=== PATIENT | male | born 1980 | race Caucasian/White ===

== ENCOUNTER → 2016-11-13 | Day surgery (SDC) | payer MEDICARE, MEDICAID ==
[~2016-11-13] VITALS: Ht 185.4 cm; Wt 136.1 kg
[~2016-11-13] MED LIST: ARIPIPRAZOLE10 MG PO; ARIPIPRAZOLE15 MG PO; ASPIRIN EC81 MG PO; CLARITIN10 MG PO; COREG 3.1253.125 MG PO; CPAP INH; DIPROLENE AF 00.05 % TOP; EFFEXOR XR PO; GLUCOPHAGE1000 MG PO; JANUVIA50 MG PO; MELATIN3 MG PO; MULTAQ400 MG PO; MYCOSTATIN CREA30 GM TOP; PRILOSEC20 MG PO; SINGULAIR10 MG PO; TRAZODONE HCL100 MG PO; VENLAFAXINE HC225 MG PO; XARELTO20 MG PO; ZOCOR40 MG PO; [UNRECOGNIZED DRUG - OTHER] TOP
--- NOTE | ~2016-11-13 | OR ---
PATIENT'S NAME: JOSE JUNIOR [facility] AGE: 36 Y [address] ROOM: [place] [address] LOCATION: [facility] [place] ADMIT DATE: 11/13/2016 OR/Procedure Report DISCHARGE DATE: FAMILY PHYSICIAN: Yousuf Michel MD ATTENDING PHYSICIAN: Jayshree Osorio SURGEON: Jayshree Osorio DDS FISCAL SERVICES MANAGER: I was assisted by Jenna Lewis. DATE OF PROCEDURE: 11/13/2016 PREOPERATIVE DIAGNOSIS: Repair of carious lesions with or without extraction. POSTOPERATIVE DIAGNOSIS: Carious lesions repaired without extraction. NAME OF OPERATION: Repair of carious lesions with or without extractions. The patient arrived at outpatient in [facility] and n.p.o. The patient is mentally challenged and we cannot achieve profound anesthesia in the office, so outpatient is necessary. There was a presurgical consultation with the patient and his brother and all questions were answered. The patient was taken to the OR. In the supine position, the patient was prepped and draped in the usual manner. The patient was nasally intubated and administered general anesthesia. An IV was placed prior to the intubation. A throat pack was then placed to occlude the pharynx. An oral exam was completed. A rubber dam and mouth prop were used whenever possible. The oral rehabilitation was as follows. #15, mesial occlusal amalgam. The amalgam was Wolf contour amalgam with Copalite cavity varnish. The mouth was then rinsed and the throat pack was removed. 3M [place] Vanish 5% sodium fluoride varnish was applied to all dentition. Blood loss was minimal. The patient tolerated the procedure well and was transferred to recovery in good and stable condition. 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 JAYSHREE OSORIO DDS TLP/modl /[id number] d: 11/13/16 2145 t: 11/23/16 0844, OPERATIVE SUMMARY
== END | disposition disaster alternative care site (69) ==
LOC: GPOC 11-09 09:00 → GSDC 07:00
PROC: 0CR Mouth and Throat, Replacement (ICD-10-PCS; principal; 2016-11-13)
PROC: 0CR Mouth and Throat, Replacement (ICD-10-PCS; 2016-11-13)
DX: K02.9 Dental caries, unspecified (principal); I48.91 Unspecified atrial fibrillation; I10 Essential (primary) hypertension; E11.9 Type 2 diabetes mellitus without complications; K21.9 Gastro-esophageal reflux disease without esophagitis; E78.5 Hyperlipidemia, unspecified; F32.9 Major depressive disorder, single episode, unspecified; G47.30 Sleep apnea, unspecified; F17.210 Nicotine dependence, cigarettes, uncomplicated; Z88.0 Allergy status to penicillin; Z88.8 Allergy status to other drugs, medicaments and biological substances; Z79.84 Long term (current) use of oral hypoglycemic drugs; Z79.899 Other long term (current) drug therapy; Z98.890 Other specified postprocedural states
CPT/HCPCS: J2001; J7030

== ENCOUNTER → 2017-01-08 | Outpatient (CLI) | payer MEDICARE, MEDICAID | END | disposition disaster alternative care site (69) | LOC: GAMB 10:05 | DX: T78.1XXA Other adverse food reactions, not elsewhere classified, initial encounter (principal); T78.49XA Other allergy, initial encounter; I48.91 Unspecified atrial fibrillation; E11.9 Type 2 diabetes mellitus without complications; L50.9 Urticaria, unspecified; L53.9 Erythematous condition, unspecified; R06.02 Shortness of breath; R11.0 Nausea | CPT/HCPCS: A0422; A0425; A0427; J1200; J2405; J2930; J7030 ==

== ENCOUNTER → 2017-01-11 | Outpatient (CLI) | payer MEDICARE, MEDICAID | END | disposition disaster alternative care site (69) | LOC: GAMB 21:25 | DX: F41.9 Anxiety disorder, unspecified (principal); I10 Essential (primary) hypertension; I48.2 Chronic atrial fibrillation; E78.5 Hyperlipidemia, unspecified; E11.9 Type 2 diabetes mellitus without complications; Z79.899 Other long term (current) drug therapy; R07.9 Chest pain, unspecified; Z88.0 Allergy status to penicillin; Z88.8 Allergy status to other drugs, medicaments and biological substances | CPT/HCPCS: A0425; A0427 ==

== ENCOUNTER → 2017-04-05 | Outpatient (CLI) | payer MEDICARE, MEDICAID | END | disposition disaster alternative care site (69) | LOC: GAMB 17:18 | DX: R53.81 Other malaise (principal); I10 Essential (primary) hypertension; I48.2 Chronic atrial fibrillation; E11.9 Type 2 diabetes mellitus without complications; F25.9 Schizoaffective disorder, unspecified; Z79.02 Long term (current) use of antithrombotics/antiplatelets; Z79.899 Other long term (current) drug therapy; Z88.0 Allergy status to penicillin; Z88.8 Allergy status to other drugs, medicaments and biological substances | CPT/HCPCS: A0425; A0429 ==

== ENCOUNTER 2017-04-29 03:48 | Emergency (ER) | payer MEDICARE, MEDICAID ==
--- NOTE | ~2017-04-29 | ER ---
PATIENT'S NAME: JOSE JUNIOR [facility] AGE: 37 Y [address] ROOM: [place] [address] LOCATION: [facility] ADMIT DATE: 04/29/2017 ER/Outpatient Report DISCHARGE DATE: 04/29/2017 FAMILY PHYSICIAN: Yousuf Michel MD ATTENDING PHYSICIAN: Cliff Ramey Time of arrival: 0348 hours. Time of evaluation: 0349 hours. CHIEF COMPLAINT: Chest pain. HISTORY OF PRESENT ILLNESS: The patient is a 37-year-old male, who presents to emergency department today with chief complaint of chest pain. He actually reports that initially was left arm pain, then went into his chest and then over his right chest. He reports that it occurred when he was coughing. The patient reports he has had a productive cough with white phlegm. Does report some shortness of breath. No nausea or vomiting. No diaphoresis. Pain is currently 6/10 in severity. It is sharp, worse with cough. PAST MEDICAL HISTORY: Obstructive sleep apnea, obesity, [id number] diabetes mellitus type 2, anxiety, depression, bipolar, schizophrenia, paroxysmal atrial fibrillation, history of suicidal ideation, dyslipidemia, and gastroesophageal reflux disease. PAST SURGICAL HISTORY: Left foot. SOCIAL HISTORY: The patient smokes half pack per day. Drinks alcohol occasionally, does use marijuana occasionally. ALLERGIES: PENICILLIN AND PROTONIX. MEDICATIONS: Please see list. PRIMARY CARE DOCTOR: Dr. Michel. REVIEW OF SYSTEMS: All systems are reviewed by myself and are negative with the exception of PATIENT'S NAME: JOSE JUNIOR [facility] AGE: 37 Y [address] ROOM: [place] [address] LOCATION: [facility] ADMIT DATE: 04/29/2017 ER/Outpatient Report DISCHARGE DATE: 04/29/2017 FAMILY PHYSICIAN: Yousuf Michel MD ATTENDING PHYSICIAN: Cliff Ramey those discussed in HPI and past medical history. PHYSICAL EXAMINATION: VITAL SIGNS: Blood pressure 115/60, pulse 89, respiratory rate 16, temperature 98.6, oxygen saturation 93% on room air. GENERAL: The patient is a 37-year-old male, appears stated age, in no acute distress at this time. HEENT: Head: Normocephalic, atraumatic. Pupils are equal, round, and reactive to light and accommodation. Extraocular motions are intact. Nares are patent bilaterally. TMs are clear. Oropharynx is clear. NECK: Supple. There is no nuchal rigidity. CARDIOVASCULAR: Regular rate and rhythm. No murmurs, rubs, or gallops. LUNGS: Diminished diffusely. No wheezes, rales, or rhonchi. ABDOMEN: Soft, nontender, and nondistended. No rebound, rigidity, or guarding. MUSCULOSKELETAL: The patient moves all 4 extremities. SKIN: Warm and dry. No rashes or lesions noted. LABORATORY DATA AND X-RAYS: Labs and x-rays are obtained. EKG is obtained, is interpreted by myself, shows sinus rhythm with a rate of 90, normal axis, normal interval, no ST elevation, ST depression, T-wave inversion. CBC is unremarkable. Coags are unremarkable. CMP is unremarkable. LFTs are normal. Cardiac enzymes are normal. IMPRESSION: 1. Acute bronchitis. 2. Chest pain suspect due to acute bronchitis. EMERGENCY DEPARTMENT COURSE: The patient brought back to the examination room. Seen and evaluated by myself. IV is established. Laboratory analysis, imaging, and EKG are obtained as described above. The patient is given 4 baby aspirin. He is given a DuoNeb breathing treatment with improvement in the patient's symptoms. He does not have any symptoms upon re-evaluation. I discussed the case with him and his [id number]. I have discussed return to care instructions including worsening symptoms or any other concerns to the emergency department as soon as possible. The patient is agreeable without further questions. DISPOSITION: The patient discharged home in good condition. PATIENT'S NAME: JOSE JUNIOR [facility] AGE: 37 Y [address] ROOM: [place], [place] [address] LOCATION: [facility] ADMIT DATE: 04/29/2017 ER/Outpatient Report DISCHARGE DATE: 04/29/2017 FAMILY PHYSICIAN: Yousuf Michel MD ATTENDING PHYSICIAN: Cliff Ramey DO KJR/josh /[id number] d: 04/29/17 2338 t: 04/30/17 0549, OUTPATIENT REPORT
[2017-04-29 04:17] LABS: BASOPHIL # 0.1 K/uL (0.0-0.2); BASOPHIL % 0.7 %; EOSINOPHIL # 0.7 K/uL (0.0-0.5); HEMATOCRIT 46.3 % (37.0-53.0); HEMOGLOBIN 15.9 g/dL (12.0-17.0); IMMATURE GRANULOCYTE % 0.5 %; LYMPHOCYTE # 2.4 K/uL (0.8-4.0); LYMPHOCYTE % 28.5 %; MCH 29.3 pg (27.0-34.0); MCHC 34.3 gm/dL (32.0-36.5); MCV 85.4 fl (83.0-98.0); MONOCYTE # 0.9 K/uL (0.0-1.0); MONOCYTE % 10.6 %; MPV 9.6 fl (9.4-12.4); NEUTROPHIL # (ANC) 4.4 K/uL (1.4-9.0); NEUTROPHIL % 51.7 %; NRBC % 0 /100WBC (0-0.00); PLATELET COUNT 278 K/uL (150-450); RBC 5.42 M/uL (4.00-6.00); RDW-CV 12.5 % (11.9-14.6); WBC 8.6 K/uL (4.0-11.0)
[2017-04-29 04:35] LABS: ALBUMIN 3.4 gm/dL (3.5-5.0); ALK PHOS 62 IU/L (33-138); ALT 40 IU/L (12-78); ANION GAP 8.3 (10.0-19.0); AST 19 IU/L (10-40); BLOOD UREA NITROGEN 9 mg/dL (6-24); CALCIUM 8.6 mg/dL (8.5-10.5); CHLORIDE 106 mMol/L (96-110); CO2 29 mMol/L (22-32); CPK 127 IU/L (35-332); MAGNESIUM 2.1 mg/dL (1.8-2.6); POTASSIUM 4.3 mMol/L (3.7-5.1); SODIUM 139 mMol/L (135-145); TOTAL BILIRUBIN 0.3 mg/dL (0.0-1.5); TOTAL PROTEIN 7.2 g/dL (6.0-8.4)
[2017-04-29 04:50] LABS: INR - (THERAPEUTIC) 0.97 (0.92-1.07); PROTIME 10.2 SECONDS (9.8-11.4); PTT 30 SECONDS (25-32)
== END 2017-04-29 04:52 | disposition disaster alternative care site (69) ==
LOC: GMED 03:48
PROVIDERS: Emergency Medicine
DX: R07.9 Chest pain, unspecified (principal); J20.9 Acute bronchitis, unspecified; I10 Essential (primary) hypertension; E11.9 Type 2 diabetes mellitus without complications; F41.9 Anxiety disorder, unspecified; F32.9 Major depressive disorder, single episode, unspecified; I48.0 Paroxysmal atrial fibrillation; E78.5 Hyperlipidemia, unspecified; K21.9 Gastro-esophageal reflux disease without esophagitis; G47.33 Obstructive sleep apnea (adult) (pediatric); E66.9 Obesity, unspecified; F17.210 Nicotine dependence, cigarettes, uncomplicated; Z88.0 Allergy status to penicillin; Z88.8 Allergy status to other drugs, medicaments and biological substances; Z79.84 Long term (current) use of oral hypoglycemic drugs; Z79.899 Other long term (current) drug therapy

== ENCOUNTER → 2017-04-29 | Outpatient (CLI) | payer MEDICARE, MEDICAID | END | disposition disaster alternative care site (69) | LOC: GAMB 03:29 | DX: R07.9 Chest pain, unspecified (principal); R06.00 Dyspnea, unspecified; I48.2 Chronic atrial fibrillation; E11.9 Type 2 diabetes mellitus without complications; Z79.899 Other long term (current) drug therapy; Z88.0 Allergy status to penicillin ==